=== PATIENT | female | born 1990 | race Caucasian/White ===

== ENCOUNTER → 2016-09-29 | Outpatient (CLI) | payer OTHER ==
--- NOTE | 2016-09-29 09:16 | DX ---
Right Tibia-Fibula, AP and Lateral Views, 8:46 AM Clinical History: 26-year-old female with right villarreal pain for one and a half years. ICD 10 Diagnostic Code: M79.661 COMPARISON STUDY: None. FINDINGS: There is no fracture, dislocation, periostitis, or lytic or blastic lesion. If there is a h igh clinical concern regarding occult shinsplints, MR imaging or a bone scan could be considered. IMPRESSION: Normal conventional radiographs.
== END ==
LOC: BRMIMAGING 08:37
PROVIDERS: ATTEND Physician Assistant
DX: M79.661 Pain in right lower leg (principal)
CPT/HCPCS: 73590-PO